=== PATIENT | male | born 1960 | race Caucasian/White ===

== ENCOUNTER 2017-08-27 06:27 | Day surgery (SDC) | payer BC ==
[2017-08-27] MEDS ORDERED: LIDOCAINE 1% PF 2 ML VIAL. ID PRN (07:00)
[2017-08-27] MEDS ORDERED: ONDANSETRON PF 4 MG/2 ML VIAL. IV PRN (07:00)
[2017-08-27] MEDS ORDERED: fentaNYL PF VIAL 100 MCG/2 ML VIAL IV PRN (07:00)
[2017-08-27] MEDS ORDERED: PROCHLORPERAZINE 10 MG/2 ML VIAL. IV PRN (07:00)
[2017-08-27] MEDS ORDERED: IV RINGERS,LACTATED 1000ML 1,000 ML IV SCH (07:00)
[2017-08-27] MEDS ORDERED: BUPIVACAINE-EPI 0.25%-1:200000 MPF 30 ML VIAL. ONE (07:06)
[2017-08-27] MEDS ORDERED: fentaNYL PF VIAL 100 MCG/2 ML VIAL ONE ×2 (07:32→10:23)
[2017-08-27] MEDS ORDERED: LIDOCAINE 2% PF Vial for OR 5 ML VIAL. ONE (07:32)
[2017-08-27] MEDS ORDERED: ROCURONIUM 100 MG/10 ML VIAL. ONE (07:32)
[2017-08-27] MEDS ORDERED: PROPOFOL 20 ML IV ONE (07:32)
[2017-08-27] MEDS ORDERED: SUCCINYLCHOLINE 200 MG/10 ML VIAL. ONE (07:32)
[2017-08-27] MEDS ORDERED: ePHEDrine PF IN SALINE 50 MG/5 ML DISP.SYRIN IV ONE (08:43)
[2017-08-27] MEDS ORDERED: DESFLURANE 31 TO 60 MINUTES IH ONE (08:55)
[2017-08-27] MEDS ORDERED: DEXAMETHASONE SOD PHOS 20 MG/5 ML VIAL. ONE (08:55)
[2017-08-27] MEDS ORDERED: ONDANSETRON PF 4 MG/2 ML VIAL. ONE (09:07)
[2017-08-27] MEDS ORDERED: NEOSTIGMINE 10 MG/10 ML VIAL. ONE (09:07)
[2017-08-27] MEDS ORDERED: GLYCOPYRROLATE 1 MG/5 ML VIAL. ONE (09:08)
--- NOTE | 2017-08-27 10:58 | PDOC4 ---
Operative Note Operative Note Date: 08/27/2017 Preoperative diagnosis: Recurrent right inguinal hernia, ventral hernia, umbilical hernia Postoperative diagnosis: Same Procedure: Robotic-assisted laparoscopic right inguinal hernia repair with mesh , ventral hernia repair with mesh, and umbilical hernia repair with mesh SurgeonNaveen Specimen: None Dictation: Patient is a 56-year-old male was seen in the office with recurrent right inguinal bulge and pain he also describes a bulge just above his umbilicus has been getting larger over the last year. The procedure of robotic- assisted laparoscopic right inguinal hernia repair and with mesh as well as ventral hernia repair with mesh was explained to the patient detail was benefits were also discussed including bleeding infection injury to intra- abdominal contents possibly necessitating further or open operations alternatives to this procedure also discussed with the patient seemed understanding gave both verbal and written consent had procedure performed. Patient was taken to the operating room placed in the supine position general anesthesia was initiated once patient was asleep and intubated is placed in low lithotomy and his abdomen was prepped and draped in usual sterile fashion using ChloraPrep. Area in the left upper quadrant was injected with quarter percent Marcaine with epinephrine incisions made lead blade scalpel and a 5 mm Visiport was placed under direct visualization into the abdominal cavity and a pneumoperitoneum was achieved. The abdomen was inspected was noted that he definitely had a right inguinal hernia as well as a ventral hernia in addition a small umbilical hernia was noted. At this time the da Renard 8 mm ports were placed one in the right mid abdomen one in the left mid abdomen and one superior to the umbilicus under direct visualization. At this time the da Renard robot was brought in and docked between the patient's lithotomy positioning to all ports camera was placed within the center port and the grasper and Endo Eddie scissors were also placed. Surgeon went to the robotic console using the grasper and Endo Eddie scissors the peritoneum over the right groin was incised a window was propagated the peritoneum inferiorly exposing a wide area around the hernia defect. There was a mesh plug noted within the hernia this was left in place a large overlay of Pro software program manager mesh was placed over the hernia defect and the peritoneum was closed using a running V lock suture. Surgeon returned to the operative field and the center port and the right abdominal port were removed the skin incisions were closed with 4 subcuticular Monocryl the patient was repositioned hernia and the table allow the robot to be docked in from the right side two more ports for the da Renard robot were placed one in the left lower abdomen and one in the left mid abdomen the da Renard robot was then docked to the 3 ports and the incarcerated omentum within the hernia defect of the ventral hernia was reduced as well as a small amount of fat from the umbilical hernia both hernias were closed using a nonabsorbable V lock suture. Ventral light ST mesh was then placed over the hernia defects this was sewn in place with a running V lock suture. Once this was complete the da Renard robot was undocked from all ports all ports removed and the pneumoperitoneum was reduced the skin incisions were all closed with 4 subcuticular Monocryl Mastisol Steri-Strips 4 x 4's Medipore tape were applied as dressings. Patient was waken next made in the operating room taken to recovery in stable condition all sponge instrument needle counts listed as correct estimated blood loss 10 mL. MERY ACEVEDO MD Aug 27, 2017 10:58
[2017-08-27] MEDS ORDERED: KETOROLAC 30 MG/ML INJ. ONE (10:59)
--- NOTE | 2017-08-27 11:00 | DISCH ---
DISCHARGE INSTRUCTIONS Condition on Discharge Condition on Discharge: Stable Activity After Discharge Activity Instructions for Disc: Avoid exertion Other activity instructions: No lifting >20lbs for 2 weeks Diet after Discharge Diet after Discharge: Regular Wound Incision Care Other wound/incision instructi: Aminata showpatricia in 24 houirs Contacting the after DC Call your doctor for: If your condition worsens Follow-Up Follow up with: Dr Acevedo in 2 weeks MERY ACEVEDO MD Aug 27, 2017 11:00
[2017-08-27] MEDS: fentaNYL PF VIAL 100 MCG/2 ML VIAL IV PRN ×2 (11:16→11:40)
[2017-08-27] MEDS ORDERED: HYDR-971 PO (11:31)
[2017-08-27] MEDS: MORPHINE SULFATE 2 MG/ML DISP.SYRIN. IV PRN ×2 (11:48→11:59)
[2017-08-27] MEDS: HYDROmorphone 2 MG/ML VIAL IV PRN ×2 (12:13→12:38)
[2017-08-27] MEDS ORDERED: HYDROcodone/APAP 5/325MG 1 TAB TABLET PO PRN ×2 (12:45)
[2017-08-27 12:54] VITALS: BP 104/63
== END 2017-08-27 14:00 | disposition home or self-care (01) ==
LOC: SURG 06:27
PROVIDERS: ATTEND Surgery
DX: K40.91 Unilateral inguinal hernia, without obstruction or gangrene, recurrent (principal); K43.9 Ventral hernia without obstruction or gangrene; K42.9 Umbilical hernia without obstruction or gangrene; F41.9 Anxiety disorder, unspecified; Z72.89 Other problems related to lifestyle; Z72.0 Tobacco use
CPT/HCPCS: 49651; 49653; C1781; J0330; J0690; J0780; J1100; J1170; J1885; J2270; J2405; J2704; J2710; J3010; J3490; J7120; J2001